=== PATIENT | male | born 1965 | race Caucasian/White ===

== ENCOUNTER → 2016-04-17 | Outpatient (CLI) | payer MEDICARE, MEDICAID | LOC: MW.CHPS 08:00 | CPT/HCPCS: 11402; 99202 ==

== ENCOUNTER 2016-05-13 12:24 | Emergency (ER) | payer MEDICARE, MEDICAID ==
--- NOTE | 2016-05-13 13:30 | EDM.PDOC ---
ED HPI Skin/Rash - General Chief Complaint: Skin Complaint Stated Complaint: RASH ON HANDS Time Seen by Provider: 05/13/16 13:10 Source: Reports: Patient History Limitations: Reports: No limitations - History of Present Illness INITIAL COMMENTS - FREE TEXT/NARRATIVE: History of present illness: [50-year-old male presenting with complaints of rash to right hand indicates that this is continued issue. Patient was treated with significant improvement her hand but not full resolution, patient has underlying psych issues that makes him focus on this, as well as take at wounds.] Review of systems: As per history of present illness and below otherwise all systems reviewed and negative. Past medical history: As per history of present illness and as reviewed below otherwise noncontributory. Surgical history: As per history of present illness and as reviewed below otherwise noncontributory. Social history: No reported history of drug or alcohol abuse. Family history: As per history of present illness and as reviewed below otherwise noncontributory. Physical exam: HEENT: Atraumatic, normocephalic, pupils reactive, negative for conjunctival pallor or scleral icterus, mucous membranes moist, throat clear, neck supple, nontender, trachea midline. Lungs: Clear to auscultation, breath sounds equal bilaterally, chest nontender. Heart: S1S2, regular, negative for clicks, rubs, or JVD. Abdomen: Soft, nondistended, nontender. Negative for masses or hepatosplenomegaly. Negative for costovertebral tenderness. Pelvis: Stable nontender. Genitourinary: Deferred. Rectal: Deferred. Extremities: Atraumatic, negative for cords or calf pain. Neurovascular unremarkable. Neuro: Awake, alert, oriented. Cranial nerves II through XII unremarkable. Cerebellum unremarkable. Motor and sensory unremarkable throughout. Exam nonfocal. Skin: Areas of dry patchy slow healing from some nature of dermatitis/ cellulitis. Areas that have been picked and torn at that are erythematous. Diagnostics: [] Therapeutics: [] Impression: [Dermatitis unresolved] Plan: [Medrol Dosepak] Definitive disposition and diagnosis as appropriate pending reevaluation and review of above. - Related Data Allergies Allergy/AdvReac Type Severity Reaction Status Date / Time chlorpromazine HCl Allergy Swollen Verified 05/13/16 12:58 [From Thorazine] Tongue divalproex sodium Allergy Swollen Verified 05/13/16 12:58 [From Depakote] Tongue haloperidol [From Haldol] Allergy Swollen Verified 05/13/16 12:58 Tongue haloperidol lactate Allergy Swollen Verified 05/13/16 12:58 [From Haldol] Tongue risperidone [From Risperdal] Allergy Swollen Verified 05/13/16 12:58 Tongue thiothixene [From Navane] Allergy Swollen Verified 05/13/16 12:58 Tongue thiothixene HCl [From Navane] Allergy Swollen Verified 05/13/16 12:58 Tongue trifluoperazine HCl Allergy Swollen Verified 05/13/16 12:58 [From Stelazine] Tongue Home Meds: Ambulatory Orders Medication Instructions Recorded Confirmed Benztropine [Cogentin] 3 mg PO BID 05/23/13 05/13/16 Lurasidone HCl [Latuda] 1 tab PO QAM 03/21/16 05/13/16 Naltrexone 1 tab PO DAILY 03/21/16 05/13/16 Lurasidone HCl [Latuda] 40 mg PO BEDTIME 04/06/16 05/13/16 methylPREDNISolone [Medrol] 4 mg PO ASDIRECTED #21 dospk 05/13/16 Past Medical History - Past Health History Medical/Surgical History: Denies Medical/Surgical History Psychiatric History: Reports: Anxiety, Hallucinations, Schizophrenia - Past Surgical History Dermatological Surgical History: Reports: Other (see below) Social & Family History - Family History Family Medical History: Noncontributory - Tobacco Use Smoking Status *Q: Never Smoker Years of Tobacco use: 35 Packs/Tins Daily: 2 Second Hand Smoke Exposure: Yes - Caffeine Use Caffeine Use: Reports: None Other Caffeine Use: 6 drinks daily - Alcohol Use Days Per Week of Alcohol Use: 7 Number of Drinks Per Day: 8 Total Drinks Per Week: 56 - Recreational Drug Use Recreational Drug Use: No Drug Use in Last 12 Months: No ED ROS GENERAL - Review of Systems Review Of Systems: See Below (See history of present illness) ED EXAM, SKIN/RASH Exam: See Below (See history of present illness) Course - Vital Signs Last Recorded V/S: Last Vital Signs Temp 36.5 C 05/13/16 13:07 Pulse 105 H 05/13/16 13:07 Resp 16 05/13/16 13:07 BP 130/82 05/13/16 13:07 Pulse Ox 96 05/13/16 13:07 Departure - Departure Time of Disposition: 13:29 Disposition: Home, Self-Care 01 Condition: good Clinical Impression: Atopic dermatitis Qualifiers: Atopic dermatitis type: unspecified Qualified Code(s): L20.9 - Atopic dermatitis, unspecified Prescriptions: methylPREDNISolone [Medrol] 4 mg PO ASDIRECTED #21 dospk Forms: ED Department Discharge Additional Instructions: The following information is given to patients seen in the emergency department who are being discharged to home. This information is to outline your options for follow-up care. We provide all patients seen in our emergency department with a follow-up referral. The need for follow-up, as well as the timing and circumstances, are variable depending upon the specifics of your emergency department visit. If you don't have a primary care physician on staff, we will provide you with a referral. We always advise you to contact your personal physician following an emergency department visit to inform them of the circumstance of the visit and for follow-up with them and/or the need for any referrals to a consulting specialist. The emergency department will also refer you to a specialist when appropriate. This referral assures that you have the opportunity for follow-up care with a specialist. All of these measure are taken in an effort to provide you with optimal care, which includes your follow-up. Under all circumstances we always encourage you to contact your private physician who remains a resource for coordinating your care. When calling for follow-up care, please make the office aware that this follow-up is from your recent emergency room visit. If for any reason you are refused follow-up, please contact the [facility] Emergency Department at and asked to speak to the emergency department charge nurse. Take medication as directed Followup with primary care provider one to 2 day Return to ED as needed as to
== END 2016-05-13 13:47 | disposition home or self-care (01) ==
LOC: MW.ED 12:24
CPT/HCPCS: 99282; 99283

== ENCOUNTER → 2016-07-03 | Outpatient (CLI) | payer MEDICARE, MEDICAID | LOC: MW.CHFP 08:00 | PROVIDERS: ATTEND Physician Assistant | DX: S00.512A Abrasion of oral cavity, initial encounter (principal); K04.7 Periapical abscess without sinus | CPT/HCPCS: G0463 ==

== ENCOUNTER 2016-11-28 10:32 | Emergency (ER) | payer MEDICARE, MEDICAID ==
[2016-11-28 10:49] VITALS: BP 169/84
--- NOTE | 2016-11-28 11:06 | EDM.PDOC ---
ED HPI GENERAL MEDICAL PROBLEM - General Chief Complaint: Behavioral/Psych Stated Complaint: MENTAL EVALUATION Time Seen by Provider: 11/28/16 10:48 Source of Information: Reports: Patient History Limitations: Reports: No Limitations - History of Present Illness INITIAL COMMENTS - FREE TEXT/NARRATIVE: HISTORY AND PHYSICAL: History of present illness: Patient is a 51-year-old male who is here by law enforcement for medical clearance. Law enforcement states that when they went to check on the patient he was in his house and grasping this chest. Patient denies any pain anywhere. Denies any chest pain, shortness of breath, diaphoresis, nausea or vomiting. When asked the patient my he was grasping at his chest when the law enforcement went to check on him he reports that he is "trying a new treatment plan". He is fixated on explaining how smoking and drinking water at the same time is beneficial. He states that he was doing this experiment when law enforcement arrived at his house. Patient does have a history of anxiety, hallucinations, schizophrenia. He currently takes Latuda and Cogentin or his mental health. While talking to him he does get off track easily. Reports he is taking his medications as prescribed. Denies any thoughts of self harm. Review of systems: As per history of present illness and below otherwise all systems reviewed and negative. Past medical history: As per history of present illness and as reviewed below otherwise noncontributory. Surgical history: As per history of present illness and as reviewed below otherwise noncontributory. Social history: No reported history of drug or alcohol abuse. Family history: As per history of present illness and as reviewed below otherwise noncontributory. Physical exam: HEENT: Atraumatic, normocephalic, pupils reactive, negative for conjunctival pallor or scleral icterus, mucous membranes moist, throat clear, neck supple, nontender, trachea midline. Lungs: Clear to auscultation, breath sounds equal bilaterally, chest nontender. Heart: S1S2, regular, negative for clicks, rubs, or JVD. Abdomen: Soft, nondistended, nontender. Negative for masses or hepatosplenomegaly. Negative for costovertebral tenderness. Pelvis: Stable nontender. Genitourinary: Deferred. Rectal: Deferred. Extremities: Atraumatic, negative for cords or calf pain. Neurovascular unremarkable. Neuro: Awake, alert, oriented. Cranial nerves II through XII unremarkable. Cerebellum unremarkable. Motor and sensory unremarkable throughout. Exam nonfocal. During the patient interview he denies any pain or any health concerns at this time. A thorough physical examination was conducted. I will get an EKG to rule out any acute TN. EKG appears normal, this was also reviewed by Dr. Huddleston. Medical clearance form is filled out. Patient may return to law enforcement custody. Diagnostics: EKG Therapeutics: [] Impression: Medical Clearance Plan: 1. Please continue to take your medications as prescribed. 2. You have been medically cleared to return to law enforcement custody. 3. Please follow-up with your primary care provider in the next 1-2 days. Return to the ED as needed as discussed Definitive disposition and diagnosis as appropriate pending reevaluation and review of above. Onset: Today - Related Data Allergies Allergy/AdvReac Type Severity Reaction Status Date / Time chlorpromazine HCl Allergy Swollen Verified 11/28/16 10:47 [From Thorazine] Tongue divalproex sodium Allergy Swollen Verified 11/28/16 10:47 [From Depakote] Tongue haloperidol [From Haldol] Allergy Swollen Verified 11/28/16 10:47 Tongue haloperidol lactate Allergy Swollen Verified 11/28/16 10:47 [From Haldol] Tongue risperidone [From Risperdal] Allergy Swollen Verified 11/28/16 10:47 Tongue thiothixene [From Navane] Allergy Swollen Verified 11/28/16 10:47 Tongue thiothixene HCl [From Navane] Allergy Swollen Verified 11/28/16 10:47 Tongue trifluoperazine HCl Allergy Swollen Verified 11/28/16 10:47 [From Stelazine] Tongue Home Meds: Home Meds Benztropine [Cogentin] 3 mg PO BID 05/23/13 [History] Lurasidone HCl [Latuda] 1 tab PO QAM 03/21/16 [History] Naltrexone 1 tab PO DAILY 03/21/16 [History] Lurasidone HCl [Latuda] 40 mg PO BEDTIME 04/06/16 [History] methylPREDNISolone [Medrol] 4 mg PO ASDIRECTED #21 dospk 05/13/16 [Rx] Past Medical History - Past Health History Medical/Surgical History: Denies Medical/Surgical History HEENT History: Reports: Impaired Vision Psychiatric History: Reports: Anxiety, Hallucinations, Schizophrenia - Past Surgical History Dermatological Surgical History: Reports: Other (See Below) Social & Family History - Family History Family Medical History: Noncontributory - Tobacco Use Smoking Status *Q: Unknown Ever Smoked Years of Tobacco use: 35 Packs/Tins Daily: 2 Second Hand Smoke Exposure: Yes - Caffeine Use Caffeine Use: Reports: None Other Caffeine Use: 6 drinks daily - Alcohol Use Days Per Week of Alcohol Use: 7 Number of Drinks Per Day: 8 Total Drinks Per Week: 56 - Recreational Drug Use Recreational Drug Use: No Drug Use in Last 12 Months: No ED ROS GENERAL - Review of Systems Review Of Systems: ROS reveals no pertinent complaints other than HPI. - Physical Exam Exam: See Below (See dictation) Course - Vital Signs Last Recorded V/S: Last Vital Signs Temp 36.8 C 11/28/16 10:32 Pulse 123 H 11/28/16 10:32 Resp 18 11/28/16 10:32 BP 169/84 H 11/28/16 10:32 Pulse Ox 95 11/28/16 10:32 - Orders/Labs/Meds Orders: Active Orders 24 hr Category Date Time Status EKG Documentation Completion [RC] STAT Care 11/28/16 11:06 Active Departure - Departure Time of Disposition: 11:47 Disposition: Home, Self-Care 01 Clinical Impression: Medical clearance for incarceration - Discharge Information Referrals: PCP,None [Primary Care Provider] - Forms: ED Department Discharge Additional Instructions: My general discharge The following information is given to patients seen in the emergency department who are being discharged to home. This information is to outline your options for follow-up care. We provide all patients seen in our emergency department with a follow-up referral. The need for follow-up, as well as the timing and circumstances, are variable depending upon the specifics of your emergency department visit. If you don't have a primary care physician on staff, we will provide you with a referral. We always advise you to contact your personal physician following an emergency department visit to inform them of the circumstance of the visit and for follow-up with them and/or the need for any referrals to a consulting specialist. The emergency department will also refer you to a specialist when appropriate. This referral assures that you have the opportunity for follow-up care with a specialist. All of these measure are taken in an effort to provide you with optimal care, which includes your follow-up. Under all circumstances we always encourage you to contact your private physician who remains a resource for coordinating your care. When calling for follow-up care, please make the office aware that this follow-up is from your recent emergency room visit. If for any reason you are refused follow-up, please contact the [facility] Emergency Department at and asked to speak to the emergency department charge nurse. [facility] [address] [place] [id number] 1. Please continue to take your medications as prescribed. 2. You have been medically cleared to return to law enforcement custody. 3. Please follow-up with your primary care provider in the next 1-2 days. Return to the ED as needed as discussed - My Orders Last 24 Hours: My Active Orders 11/28/16 11:06 EKG Documentation Completion [RC] STAT - Assessment/Plan Last 24 Hours: My Active Orders 11/28/16 11:06 EKG Documentation Completion [RC] STAT
== END 2016-11-28 11:57 | disposition home or self-care (01) ==
LOC: MW.ED 10:32
DX: Z02.89 Encounter for other administrative examinations (principal); Z88.8 Allergy status to other drugs, medicaments and biological substances; Z88.5 Allergy status to narcotic agent; Z79.899 Other long term (current) drug therapy
CPT/HCPCS: 93005; 99282; 99284-25

== ENCOUNTER 2018-11-26 19:00 | Emergency (ER) | payer MEDICAID, MEDICARE, SELFPAY ==
[2018-11-26 19:21] VITALS: BP 154/100; PULSE 106
[2018-11-26] MEDS ORDERED: Benzocaine 20% Topical Spray UD MUCMEM ONE (19:41)
[2018-11-26] MEDS ORDERED: Lidocaine 2% Viscous Solution 15 ML Cup PO ONE (19:41)
--- NOTE | 2018-11-26 19:46 | EDM.PDOC ---
ED HPI GENERAL MEDICAL PROBLEM - General Chief Complaint: ENT Problem Stated Complaint: INFECTION IN MOUTH Time Seen by Provider: 11/26/18 19:38 - History of Present Illness INITIAL COMMENTS - FREE TEXT/NARRATIVE: HISTORY AND PHYSICAL: History of present illness: The patient is a 53-year-old male who presents with complaints of dental pain at the right upper premolar area and admits he has multiple areas of dental disease and has not seen a dentist for 25 years. He says he saw a provider for this same problem and was given Augmentin and he says that he does not think it works as good as penicillin and he is here to get penicillin. He has no other systemic complaints Review of systems: As per history of present illness and below otherwise all systems reviewed and negative. Past medical history: As per history of present illness and as reviewed below otherwise noncontributory. Surgical history: As per history of present illness and as reviewed below otherwise noncontributory. Social history: No reported history of drug or alcohol abuse. Family history: As per history of present illness and as reviewed below otherwise noncontributory. Physical exam: General: Well-developed well-nourished man who is nontoxic and vital signs are noted by me. There is a small amount of swelling at the right maxillary area but there is no tenderness or crepitus in this area. HEENT: Atraumatic, normocephalic, pupils reactive, negative for conjunctival pallor or scleral icterus, mucous membranes moist, throat clear, neck supple, nontender, trachea midline. There is no cervical adenopathy or nuchal rigidity and there are multiple areas of diffuse dental disease seen throughout the mouth with gum swelling but there is tenderness more at the right premolar and bicuspid area without fluctuance Lungs: Clear to auscultation, breath sounds equal bilaterally, chest nontender. Heart: S1S2, regular rate and rhythm no overt murmurs Abdomen: Soft, nondistended, nontender. NABS Pelvis: Deferred Genitourinary: Deferred. Rectal: Deferred. Extremities: Atraumatic, full range of motion Neurovascular unremarkable. Neuro: Awake, alert, oriented. Cranial nerves II through XII unremarkable. Cerebellum unremarkable. Motor and sensory unremarkable throughout. Exam nonfocal. Diagnostics: [] Therapeutics: Dental balls I told the patient that I would prescribe him the penicillin and also give him dental balls and a list of dentists in the area Impression: Dental pain/infection Definitive disposition and diagnosis as appropriate pending reevaluation and review of above. - Related Data Allergies Allergy/AdvReac Type Severity Reaction Status Date / Time chlorpromazine HCl Allergy Swollen Verified 11/26/18 19:17 [From Thorazine] Tongue divalproex sodium Allergy Swollen Verified 11/26/18 19:17 [From Depakote] Tongue haloperidol [From Haldol] Allergy Swollen Verified 11/26/18 19:17 Tongue haloperidol lactate Allergy Swollen Verified 11/26/18 19:17 [From Haldol] Tongue risperidone [From Risperdal] Allergy Swollen Verified 11/26/18 19:17 Tongue thiothixene [From Navane] Allergy Swollen Verified 11/26/18 19:17 Tongue thiothixene HCl [From Navane] Allergy Swollen Verified 11/26/18 19:17 Tongue trifluoperazine HCl Allergy Swollen Verified 11/26/18 19:17 [From Stelazine] Tongue Home Meds: Home Meds Benztropine [Cogentin] 1 mg PO BEDTIME 10/24/17 [History] ARIPiprazole [Abilify Maintena] mg IM 11/26/18 [History] Past Medical History - Past Health History Medical/Surgical History: Denies Medical/Surgical History HEENT History: Reports: Impaired Vision Cardiovascular History: Reports: None Respiratory History: Reports: None Gastrointestinal History: Reports: None Genitourinary History: Reports: None Musculoskeletal History: Reports: None Neurological History: Reports: None Psychiatric History: Reports: Anxiety, Hallucinations, Schizophrenia Endocrine/Metabolic History: Reports: None Hematologic History: Reports: None Immunologic History: Reports: None Oncologic (Cancer) History: Reports: None Dermatologic History: Reports: None - Past Surgical History Head Surgeries/Procedures: Reports: None Cardiovascular Surgical History: Reports: None Respiratory Surgical History: Reports: None GI Surgical History: Reports: None Male Surgical History: Reports: None Endocrine Surgical History: Reports: None Neurological Surgical History: Reports: None Musculoskeletal Surgical History: Reports: None Oncologic Surgical History: Reports: None Dermatological Surgical History: Reports: Other (See Below) Social & Family History - Family History Family Medical History: Noncontributory - Tobacco Use Smoking Status *Q: Current Every Day Smoker Years of Tobacco use: 20 Packs/Tins Daily: 1 - Caffeine Use Caffeine Use: Reports: Coffee Other Caffeine Use: 6 drinks daily - Recreational Drug Use Recreational Drug Use: No ED ROS GENERAL - Review of Systems Review Of Systems: ROS reveals no pertinent complaints other than HPI. ED EXAM, GENERAL - Physical Exam Exam: See Below (See dictation) Course - Vital Signs Last Recorded V/S: Last Vital Signs Temp 36.3 C 11/26/18 19:18 Pulse 106 H 11/26/18 19:18 Resp 17 11/26/18 19:18 BP 154/100 H 11/26/18 19:18 Pulse Ox 95 11/26/18 19:18 - Orders/Labs/Meds Orders: Active Orders 24 hr Category Date Time Status Benzocaine [Hurricaine One 20%] Med 11/26/18 19:41 Once 2 each MUCMEM ONETIME ONE Lidocaine 2% [Xylocaine 2% Viscous] Med 11/26/18 19:41 Once 15 ml PO ONETIME ONE Departure - Departure Time of Disposition: 19:45 Disposition: Home, Self-Care 01 Condition: Good Clinical Impression: Infected dental caries - Discharge Information Additional Instructions: The following information is given to patients seen in the emergency department who are being discharged to home. This information is to outline your options for follow-up care. We provide all patients seen in our emergency department with a follow-up referral. The need for follow-up, as well as the timing and circumstances, are variable depending upon the specifics of your emergency department visit. If you don't have a primary care physician on staff, we will provide you with a referral. We always advise you to contact your personal physician following an emergency department visit to inform them of the circumstance of the visit and for follow-up with them and/or the need for any referrals to a consulting specialist. The emergency department will also refer you to a specialist when appropriate. This referral assures that you have the opportunity for followup care with a specialist. All of these measure are taken in an effort to provide you with optimal care, which includes your followup. Under all circumstances we always encourage you to contact your private physician who remains a resource for coordinating your care. When calling for followup care, please make the office aware that this follow-up is from your recent emergency room visit. If for any reason you are refused follow-up, please contact the [facility] emergency department at and ask to speak to the emergency department charge nurse. [facility] Primary care- Internal Medicine and Family [address] [address] Use dental balls you have been given in the ED for pain management and fill your prescription for penicillin as take as directed. Use [id number] medications for pain management and please call and schedule a follow-up appointment with one of our dentist. Return to ER as needed and as discussed - My Orders Last 24 Hours: My Active Orders 11/26/18 19:41 Benzocaine [Hurricaine One 20%] 2 each MUCMEM ONETIME ONE Lidocaine 2% [Xylocaine 2% Viscous] 15 ml PO ONETIME ONE - Assessment/Plan Last 24 Hours: My Active Orders 11/26/18 19:41 Benzocaine [Hurricaine One 20%] 2 each MUCMEM ONETIME ONE Lidocaine 2% [Xylocaine 2% Viscous] 15 ml PO ONETIME ONE
== END 2018-11-26 20:05 | disposition home or self-care (01) ==
LOC: MW.ED 19:00
DX: K04.7 Periapical abscess without sinus (principal); K02.9 Dental caries, unspecified; F41.9 Anxiety disorder, unspecified; F17.210 Nicotine dependence, cigarettes, uncomplicated; Z88.8 Allergy status to other drugs, medicaments and biological substances
CPT/HCPCS: 99282; A9270

== ENCOUNTER 2019-04-23 01:25 | Emergency (ER) | payer MEDICAID, MEDICARE ==
--- NOTE | 2019-04-23 02:15 | EDM.PDOC ---
ED HPI GENERAL MEDICAL PROBLEM - General Chief Complaint: Skin Complaint Stated Complaint: AMB Time Seen by Provider: 04/23/19 01:45 Source of Information: Reports: Patient - History of Present Illness INITIAL COMMENTS - FREE TEXT/NARRATIVE: The patient is a 53-year-old male who presents to the ER for a problem with the skin on his shoulder. He does not know when this started but he just wants to know what it is. He cannot tell me any further information. - Related Data Allergies Allergy/AdvReac Type Severity Reaction Status Date / Time chlorpromazine HCl Allergy Swollen Verified 04/23/19 01:30 [From Thorazine] Tongue divalproex sodium Allergy Swollen Verified 04/23/19 01:30 [From Depakote] Tongue haloperidol [From Haldol] Allergy Swollen Verified 04/23/19 01:30 Tongue haloperidol lactate Allergy Swollen Verified 04/23/19 01:30 [From Haldol] Tongue risperidone [From Risperdal] Allergy Swollen Verified 04/23/19 01:30 Tongue thiothixene [From Navane] Allergy Swollen Verified 04/23/19 01:30 Tongue thiothixene HCl [From Navane] Allergy Swollen Verified 04/23/19 01:30 Tongue trifluoperazine HCl Allergy Swollen Verified 04/23/19 01:30 [From Stelazine] Tongue Home Meds: Home Meds Benztropine [Cogentin] 1 mg PO BEDTIME 10/24/17 [History] ARIPiprazole [Abilify Maintena] mg IM 11/26/18 [History] Past Medical History - Past Health History Medical/Surgical History: Denies Medical/Surgical History HEENT History: Reports: Impaired Vision Cardiovascular History: Reports: None Respiratory History: Reports: None Gastrointestinal History: Reports: None Genitourinary History: Reports: None Musculoskeletal History: Reports: None Neurological History: Reports: None Psychiatric History: Reports: Anxiety, Hallucinations, Schizophrenia Endocrine/Metabolic History: Reports: None Hematologic History: Reports: None Immunologic History: Reports: None Oncologic (Cancer) History: Reports: None Dermatologic History: Reports: None - Past Surgical History Head Surgeries/Procedures: Reports: None Cardiovascular Surgical History: Reports: None Respiratory Surgical History: Reports: None GI Surgical History: Reports: None Male Surgical History: Reports: None Endocrine Surgical History: Reports: None Neurological Surgical History: Reports: None Musculoskeletal Surgical History: Reports: None Oncologic Surgical History: Reports: None Dermatological Surgical History: Reports: Other (See Below) Social & Family History - Family History Family Medical History: Noncontributory - Caffeine Use Caffeine Use: Reports: Coffee Other Caffeine Use: 6 drinks daily ED ROS GENERAL - Review of Systems Review Of Systems: Unable To Obtain Reason Not Obtained: Patient appears intoxicated ED EXAM, SKIN/RASH Exam: See Below Text/Narrative:: Constitutional: No acute distress, Non-toxic appearance, disheveled, smells of alcohol and is mildly inebriated. HEENT: Normocephalic, Atraumatic, pupils equal round reactive to light, EOMI Neck: Normal range of motion, No stridor, trachea midline, nontender Respiratory: No respiratory distress, No tachypnea Cardiovascular: Deferred Gastrointestinal: Deferred Genital / Urinary: Deferred Musculoskeletal: All four extremities present, the proximal right shoulder has a very deep, nonblanching, ecchymotic contusion that appears to be anywhere from 1 to 3 days old, there is no instability of the shoulder but it is very painful to range of motion, and he resists and he resists abduction, clavicle appears unremarkable, arm is neurovascular intact Back: FROM Integument: Warm, Dry, Color is ethnicity appropriate, No rash. Neuro: Alert, Awake, oriented x3, cranial is grossly intact, mildly inebriated, no focal deficits noted Psych: Not psychotic but odd Course - Vital Signs Text/Narrative:: The patient is denying that he fell down. He thinks that the skin changes might be because he had ruptured the tendon in his bicep to 1 year ago or he was using a snowblower recently. The skin discoloration on his shoulder is definitely a contusion I suspect that the patient has been drinking and fell down and does not remember. Right shoulder x-rays reviewed and interpreted by me -there are no acute or chronic fractures, no dislocation, clavicle is unremarkable, no pneumothorax, no pulmonary infiltrates or any acute process noted I tried explaining everything to the patient but he does not want to listen he is very insistent that he was just pulling a snowblower cord -and there has not been any snow outside for a while (and it was 60 degrees earlier today ) Stable for discharge. Last Recorded V/S: Last Vital Signs Temp 36.2 C 04/23/19 01:30 Pulse 96 04/23/19 01:30 Resp 18 04/23/19 01:30 BP 151/92 H 04/23/19 01:30 Pulse Ox 98 04/23/19 01:30 - Orders/Labs/Meds Orders: Active Orders 24 hr Category Date Time Status Shoulder Comp Rt [CR] Stat Exams 04/23/19 01:38 Taken Departure - Departure Time of Disposition: 02:15 Disposition: Home, Self-Care 01 Condition: Good Clinical Impression: Contusion of shoulder, right - Discharge Information Referrals: PCP,None [Primary Care Provider] - Additional Instructions: Ibuprofen, Tylenol and lots of ice. Activity as tolerated. Sepsis Event Note - Evaluation Sepsis Screening Result: No Definite Risk - Focused Exam Vital Signs: Vital Signs Temp Pulse Resp BP Pulse Ox 04/23/19 01:30 36.2 C 96 18 151/92 H 98 Date Exam was Performed: 04/23/19 Time Exam was Performed: 02:08 - My Orders Last 24 Hours: My Active Orders 04/23/19 01:38 Shoulder Comp Rt [CR] Stat - Assessment/Plan Last 24 Hours: My Active Orders 04/23/19 01:38 Shoulder Comp Rt [CR] Stat
--- NOTE | 2019-04-23 02:20 | CR ---
Indication: Seen over the right shoulder Technique: Three views right shoulder Comparison: April 02, 2017 Findings: Bones: Alignment is normal. No fractures or bone lesions. Joint spaces: Unremarkable. Soft tissues: Unremarkable. Impression: Negative. Dictated by Geni Guajardo MD @ Apr 23 2019 2:19AM Signed by Dr. Geni Guajardo @ Apr 23 2019 2:19AM
[2019-04-23 02:34] VITALS: BP 120/83; PULSE 88
== END 2019-04-23 02:25 | disposition home or self-care (01) ==
LOC: MW.ED 01:25
DX: M79.81 Nontraumatic hematoma of soft tissue (principal); F41.9 Anxiety disorder, unspecified; F20.9 Schizophrenia, unspecified; Z88.8 Allergy status to other drugs, medicaments and biological substances; Z79.899 Other long term (current) drug therapy
CPT/HCPCS: 73030-26-RT; 73030-RT; 99282; 99283-25